=== PATIENT | male | born 1965 | race Hispanic/Latino ===

== ENCOUNTER 2021-06-15 17:01 | Inpatient (IN) | payer SELFPAY ==
[2021-06-15 17:34] VITALS: BMI 27.4
[2021-06-15] MEDS ORDERED: Dextrose 50% Abboject 50 ML SYRINGE SLOW IVP PRN (17:38)
[2021-06-15] MEDS ORDERED: Ondansetron PF 4 MG/2 ML Vial IVP PRN (17:38)
[2021-06-15] MEDS ORDERED: Dextrose 5% in Water 1,000 ML IV PRN (17:38)
[2021-06-15] MEDS ORDERED: Insulin Regular 300 UNITS/3 ML VIAL SC PRN (17:38)
[2021-06-15] MEDS ORDERED: Acetaminophen 325 MG TAB PO PRN (17:38)
[2021-06-15] MEDS ORDERED: Pantoprazole 80 MG in Sodium Chloride 0.9% 100 ML IVPB SCH (17:45)
[2021-06-15] MEDS ORDERED: Lorazepam 2 MG/ML VIAL SLOW IVP PRN (17:52)
[2021-06-15] MEDS ORDERED: Furosemide 40 MG/4 ML VIAL IVP SCH (19:00)
[2021-06-15 19:07] LABS: Hemoglobin 3.9 g/dL (13.5-17.5)
[2021-06-15] MEDS: Lactated Ringer's 1,000 ML IV SCH (20:48)
[2021-06-15] MEDS: HumaLOG 300 UNITS/3 ML VIAL SC PRN (21:43)
[2021-06-16] MEDS ORDERED: Furosemide 40 MG/4 ML VIAL IVP SCH (04:15)
[2021-06-16] MEDS: Lactated Ringer's 1,000 ML IV SCH ×2 (04:18→19:28)
[2021-06-16 06:16] LABS: Hemoglobin 6.6 g/dL (13.5-17.5)
[2021-06-16 06:23] LABS: ALT (SGPT) 42 U/L (8-55); AST (SGOT) 35 U/L (5-34); Albumin 2.8 g/dL (3.5-5.0); Alkaline Phosphatase 135 U/L (40-110); Anion Gap 14 mmol/L (10-20); BUN (Urea Nitrogen) 25 mg/dL (8.4-25.7); Bilirubin, Total 1.9 mg/dL (0.2-1.2); Calc. Creatinine Clearance 130 mL/min (70-130); Calcium 8.3 mg/dL (7.8-10.44); Carbon Dioxide 20 mmol/L (22-29); Chloride 106 mmol/L (98-107); Globulin 2.7 g/dL (2.4-3.5); Glucose 190 mg/dL (70-105); Potassium 4.5 mmol/L (3.5-5.1); Protein, Total 5.5 g/dL (6.0-8.3); Sodium 135 mmol/L (136-145)
[2021-06-16 09:43] LABS: Hemoglobin A1c 7.8 % (4.0-6.0)
[2021-06-16 09:55] LABS: HBCM Index 0.06 S/CO (0-0.79); HBSAg Index 0.24 S/CO (0-0.99); Hep A IgM AB Non-Reactive (NonReactive); Hep A IgM S/CO 0.22 S/CO (0-0.79); Hep B Surf Ag Non-Reactive S/CO (NonReactive); Hep C IgG Ab Non-Reactive (NonReactive); Hep C Index 0.24 S/CO (0-0.79); Hepatitis B Core IgM Abs Non-Reactive (NonReactive)
[2021-06-16] MEDS ORDERED: PROPOFOL 40 ML ONE (10:55)
[2021-06-16] MEDS: Multivit, Therapeutic 1 TAB PO SCH (13:02)
[2021-06-16] MEDS: Thiamine 100 MG TAB PO SCH (13:02)
[2021-06-16] MEDS: Folic Acid 1 MG TAB PO SCH (13:02)
[2021-06-16 16:07] LABS: Hemoglobin 6.8 g/dL (13.5-17.5)
[2021-06-16] MEDS ORDERED: Furosemide 20 MG TAB PO SCH (17:15)
[2021-06-16] MEDS: HumaLOG 300 UNITS/3 ML VIAL SC PRN (21:16)
[2021-06-16 21:42] LABS: Hemoglobin 7.8 g/dL (13.5-17.5)
[2021-06-17] MEDS: HumaLOG 300 UNITS/3 ML VIAL SC PRN (06:29)
[2021-06-17 06:32] LABS: #Basophils 0.1 10x3/uL (0.0-0.2); #Eosinphils 0.2 10x3/uL (0.0-0.5); #Monocytes 0.9 10x3/uL (0.0-1.1); #Neutrophils 7.6 10x3/uL (1.5-8.4); %Basophils 0.5 % (0.0-2.0); %Eosinophils 2.1 % (0.0-6.0); %Lymphocytes 21.8 % (18.0-47.0); %Monocytes 7.5 % (0.0-10.0); %Neutrophils 65.9 % (40.0-75.0); Mean Corpuscular HGB CONC 30.4 g/dL (32.0-36.0); Mean Corpuscular Hemoglobin 23.7 pg (27.0-33.0); Mean Platelet Volume 10.3 fl (7.4-10.4); Platelet Count 300 10x3/uL (150-450); RBC Distribution Width 22.9 % (11.5-14.5); Red Blood Cell (RBC) Count 2.95 10x6/uL (4.32-5.72); White Blood Cell (WBC) Count 11.6 10x3/uL (3.5-10.5)
[2021-06-17 06:50] LABS: ALT (SGPT) 35 U/L (8-55); AST (SGOT) 33 U/L (5-34); Albumin 2.7 g/dL (3.5-5.0); Alkaline Phosphatase 132 U/L (40-110); Anion Gap 13 mmol/L (10-20); BUN (Urea Nitrogen) 18 mg/dL (8.4-25.7); Bilirubin, Total 0.8 mg/dL (0.2-1.2); Calc. Creatinine Clearance 130 mL/min (70-130); Calcium 8.2 mg/dL (7.8-10.44); Carbon Dioxide 22 mmol/L (22-29); Chloride 107 mmol/L (98-107); Globulin 2.6 g/dL (2.4-3.5); Glucose 160 mg/dL (70-105); Potassium 4.1 mmol/L (3.5-5.1); Protein, Total 5.3 g/dL (6.0-8.3); Sodium 138 mmol/L (136-145)
[2021-06-17 07:30] LABS: Anisocytosis MARKED = >30 cells (100X) (0-5/hpf); Polychromasia MODERATE = 3-4 cells (100X) (0-2/hpf)
[2021-06-17 07:31] LABS: Hypochromia MODERATE=16-30 cells (100X) (0-5/hpf); Ovalocytes SLIGHT = 2-5 cells (100X) (0-1/hpf)
[2021-06-17 07:32] LABS: Macrocytosis SLIGHT = 6-15 cells (100X) (0-5/hpf); Microcytosis MODERATE=15-30 cells (100X) (0-5/hpf)
[2021-06-17 07:36] LABS: Platelet Morphology Comment Appears Adequate
[2021-06-17 07:37] LABS: Large Platelets SLIGHT
[2021-06-17 08:24] LABS: Hemoglobin 7.1 g/dL (13.5-17.5)
[2021-06-17] MEDS: Furosemide 20 MG TAB PO SCH (09:08)
[2021-06-17] MEDS: Folic Acid 1 MG TAB PO SCH (09:08)
[2021-06-17] MEDS: Thiamine 100 MG TAB PO SCH (09:08)
[2021-06-17] MEDS: Multivit, Therapeutic 1 TAB PO SCH (09:08)
[2021-06-17] MEDS ORDERED: GoLYTELY 4,000 ml Bottle PO SCH (13:00)
[2021-06-17 15:25] LABS: Hemoglobin 7.2 g/dL (13.5-17.5)
[2021-06-18 07:18] LABS: #Eosinphils 0.2 10x3/uL (0.0-0.5); #Monocytes 0.6 10x3/uL (0.0-1.1); #Neutrophils 4.9 10x3/uL (1.5-8.4); %Basophils 0.4 % (0.0-2.0); %Eosinophils 2.7 % (0.0-6.0); %Lymphocytes 24.4 % (18.0-47.0); %Monocytes 7.4 % (0.0-10.0); %Neutrophils 64.3 % (40.0-75.0); Mean Corpuscular HGB CONC 29.8 g/dL (32.0-36.0); Mean Corpuscular Hemoglobin 23.9 pg (27.0-33.0); Mean Corpuscular Volume 80.2 fl (81.2-95.1); Mean Platelet Volume 10.3 fl (7.4-10.4); Platelet Count 282 10x3/uL (150-450); RBC Distribution Width 23.4 % (11.5-14.5); Red Blood Cell (RBC) Count 2.93 10x6/uL (4.32-5.72); White Blood Cell (WBC) Count 7.7 10x3/uL (3.5-10.5)
[2021-06-18 07:32] LABS: ALT (SGPT) 39 U/L (8-55); AST (SGOT) 41 U/L (5-34); Albumin 2.7 g/dL (3.5-5.0); Alkaline Phosphatase 126 U/L (40-110); Anion Gap 14 mmol/L (10-20); BUN (Urea Nitrogen) 13 mg/dL (8.4-25.7); Bilirubin, Total 1.1 mg/dL (0.2-1.2); Calc. Creatinine Clearance 134 mL/min (70-130); Calcium 8.4 mg/dL (7.8-10.44); Carbon Dioxide 24 mmol/L (22-29); Chloride 105 mmol/L (98-107); Globulin 2.7 g/dL (2.4-3.5); Glucose 120 mg/dL (70-105); Magnesium 1.7 mg/dL (1.6-2.6); Potassium 3.9 mmol/L (3.5-5.1); Protein, Total 5.4 g/dL (6.0-8.3); Sodium 139 mmol/L (136-145)
[2021-06-18] MEDS: metFORMIN 500 MG TAB PO SCH ×2 (08:39→18:10)
[2021-06-18] MEDS: Folic Acid 1 MG TAB PO SCH (10:16)
[2021-06-18] MEDS: Furosemide 20 MG TAB PO SCH (10:16)
[2021-06-18] MEDS: Multivit, Therapeutic 1 TAB PO SCH (10:16)
[2021-06-18] MEDS: Thiamine 100 MG TAB PO SCH (10:16)
[2021-06-18] MEDS ORDERED: PROPOFOL 40 ML ONE (13:27)
[2021-06-18] MEDS ORDERED: Midazolam HCl 2 mg/2 ml Vial ONE (13:29)
[2021-06-18] MEDS ORDERED: Furosemide 40 MG/4 ML VIAL SLOW IVP SCH (15:15)
[2021-06-19 06:09] LABS: Hemoglobin 7.8 g/dL (13.5-17.5)
[2021-06-19] MEDS ORDERED: Furosemide 40 MG/4 ML VIAL SLOW IVP SCH (08:30)
[2021-06-19] MEDS ORDERED: Propranolol 40 MG TAB PO SCH (09:00)
[2021-06-19] MEDS: Furosemide 20 MG TAB PO SCH (10:14)
[2021-06-19] MEDS: Folic Acid 1 MG TAB PO SCH (10:14)
[2021-06-19] MEDS: metFORMIN 500 MG TAB PO SCH (10:14)
[2021-06-19] MEDS: Multivit, Therapeutic 1 TAB PO SCH (10:14)
[2021-06-19] MEDS: Thiamine 100 MG TAB PO SCH (10:14)
[2021-06-19 11:51] VITALS: BP 151/73; TEMP 97.7
== END 2021-06-19 17:40 | disposition home or self-care (01) | DRG 432 ==
LOC: CSHTELE 17:01 → OBSVTOIN 17:38
PROVIDERS: ADMIT Internal Medicine; ATTEND Internal Medicine
PROC: 0DB68ZX Excision of Stomach, Via Natural or Artificial Opening Endoscopic, Diagnostic (ICD-10-PCS; principal; 2021-06-16)
PROC: 06L38CZ Occlusion of Esophageal Vein with Extraluminal Device, Via Natural or Artificial Opening Endoscopic (ICD-10-PCS; 2021-06-16)
PROC: 30233N1 Transfusion of Nonautologous Red Blood Cells into Peripheral Vein, Percutaneous Approach (ICD-10-PCS; 2021-06-18)
PROC: 0DBM8ZZ Excision of Descending Colon, Via Natural or Artificial Opening Endoscopic (ICD-10-PCS; 2021-06-18)
DX: K70.31 Alcoholic cirrhosis of liver with ascites (principal); I85.11 Secondary esophageal varices with bleeding; D62 Acute posthemorrhagic anemia; F10.20 Alcohol dependence, uncomplicated; Z20.822 Contact with and (suspected) exposure to COVID-19; E11.9 Type 2 diabetes mellitus without complications; K26.9 Duodenal ulcer, unspecified as acute or chronic, without hemorrhage or perforation; B96.81 Helicobacter pylori [H. pylori] as the cause of diseases classified elsewhere; D12.4 Benign neoplasm of descending colon; F17.210 Nicotine dependence, cigarettes, uncomplicated
CPT/HCPCS: 36415; 36416; 36430; 80053; 80074; 82105; 83036; 83735; 85014; 85018; 85025; 86850; 86900; 86901; 88305; 88312; 93975; 94760; J1815; J1940; J2250; J2704; P9016